=== PATIENT | male | born 1960 | race Caucasian/White ===

== ENCOUNTER 2019-04-07 11:39 | Inpatient (IN) ==
[2019-04-07 13:21] LABS: URINE SOURCE CATH
[2019-04-07 13:39] LABS: BILIRUBIN URINE NEGATIVE (NEGATIVE); BLOOD URINE TRACE (NEGATIVE); COLOR YELLOW; GLUCOSE URINE NEGATIVE (NEGATIVE); KETONE URINE NEGATIVE (NEGATIVE); LEUKOCYTES URINE LARGE (NEGATIVE); NITRITE URINE NEGATIVE (NEGATIVE); PROTEIN URINE TRACE mg/dL (NEGATIVE); SP GRAVITY URINE 1.014; TURBIDITY URINE CLEAR (CLEAR); UR EPITHELIAL CELLS <10 /HPF (<10); URINE BACTERIA 4+ /HPF; URINE RBC <10 /HPF (<10); URINE WBC TNTC /HPF (<10); UROBILINOGEN URINE NORMAL (NORMAL)
[2019-04-07] MEDS ORDERED: MORPHINE IV ONE ×2 (13:44→15:55)
[2019-04-07] MEDS ORDERED: ZOFRAN IV ONE (13:44)
[2019-04-07 13:53] LABS: BASO# 0.01 X1000 (0.0-0.2); EOS# 0.04 X1000 (0.0-0.7); EOS% 0.2 % (0.0-10.0); HEMATOCRIT 44.6 % (42.0-52.0); HEMOGLOBIN 15.2 g/dL (14.0-18.0); IMM GRAN# 0.11 X1000 (0.0-0.04); IMM GRAN% 0.5 % (0.0-0.5); LYMPH% 1.4 % (20.5-51.1); MCHC 34.1 g/dL (33-37); MCV 93.9 FL (81-99); MONO# 0.31 X1000 (0.11-0.59); MONO% 1.5 % (1.7-9.3); NEUT# 20.08 X1000 (1.4-6.5); NEUT% 96.4 % (42.2-75.2); PLT 177 X1000 (130-400); RBC 4.75 XMIL (4.7-6.1); RDW 13.4 % (11.5-14.5); WBC 20.85 X1000 (4.8-10.8)
[2019-04-07] MEDS ORDERED: LEVAQUIN 750 MG/D5W 750 MG/150 ML IVPB IV ONE (13:59)
[2019-04-07 14:10] LABS: AGAP 13; ALB/GLOB RATIO 1.3; ALBUMIN 4.2 g/dL (3.5-5.0); ALKALINE PHOSPHATASE 71 U/L (32-122); BUN 17 mg/dL (8-22); CALCIUM 10.1 mg/dL (8.8-10.2); CHLORIDE 96 mmol/L (98-107); COSMO 271; CREATININE 1.2 mg/dL (0.7-1.2); ESTIMATED GFR > 60; GLUCOSE 126 mg/dL (70-104); GOT 23 U/L (10-34); GPT 19 U/L (10-44); POTASSIUM 4.3 mmol/L (3.5-5.1); SODIUM 134 mmol/L (136-145); TCO2 25 mmol/L (25-35); TOTAL BILIRUBIN 1.02 mg/dL (0.20-1.00); TOTAL PROTEIN 7.5 g/dL (6.3-8.3)
[2019-04-07 14:12] LABS: BANDS 10 % (0-1); LYMPHS 8 % (21-51); MONO 2 % (1-9); SEGS 80 % (42-75)
[2019-04-07] MEDS ORDERED: ROCEPHIN 1 GM in NS 50 ML IV ONE (14:47)
--- NOTE | 2019-04-07 16:08 | Diag Imaging Result Doc PS360 ---
EXAM: CT ABD/PELVIS W/IV CONT ONLY 04/07/2019 HISTORY: abd pain TECHNIQUE: This exam was performed using automated exposure control, adjustment of mA or kV according to patient size, and/or use of iterative reconstruction technique. COMMENT: The current examination is compared with 10/24/2015. There are atelectatic changes in the lung bases posteriorly which were not present at the time of the previous study. There are bilateral pleural effusions which were not previously present. The stomach is markedly distended with gas and fluid. There is a hiatal hernia which contains some gas and fluid. The distal esophagus is slightly thickened in appearance. There is some free fluid in the subphrenic spaces. The gallbladder is not distended and there is no evidence of stones. The spleen and adrenal glands are not enlarged. There is a fair amount of stool in the colon and there are multiple fluid and gas-filled small bowel loops which are distended in the left abdomen. The kidneys are without evidence of hydronephrosis or mass. The hydronephrosis and dilatation of the urinary bladder which were present at the time the previous study are no longer present. There are no definite stones. The aorta is not distended. There are atherosclerotic calcifications. The mesenteric and renal arteries are patent. There is an accessory left renal artery. This: There is free fluid. The urinary bladder is much less distended than on the previous study. There is formed stool in the rectum. The anasarca which was present previously is no longer present. The appendix is surgically absent by history. There are bilateral fluid-filled inguinal hernias. There is rotoscoliosis of the lumbar spine with convexity to the right. IMPRESSION: 1. Bibasilar atelectasis and pleural effusions. 2. Small hiatal hernia with possible reflux. The possibility of esophagitis cannot be excluded. 3. Distended stomach and small bowel. The possibility of ileus or partial obstruction cannot be excluded. 4. Constipation. 5. Ascites. Electronically signed by Rodolfo Posada 04/07/2019 4:05 PM
--- NOTE | 2019-04-07 16:37 | PROVIDER DOCUMENTATION ---
This chart was entered by Dianne Barclay Scribe, acting as scribe for Jan Ibrahim CRNP. HPI-Male Problem - General Chief Complaint: Abdominal Pain Stated Complaint: ABD PAIN Time Seen by Provider: 04/07/19 11:50 Source: patient Allergies/Adverse Reactions: Patient Allergies Allergy/AdvReac Type Severity Reaction Status Date / Time No Known Allergies Allergy Verified 04/07/19 12:58 Home Medications: Home Medication List Medication Instructions Recorded Confirmed Last Taken Type Tamsulosin [Flomax] 0.4 mg PO DAILY 04/07/19 04/07/19 04/07/19 History - History of Present Illness-Male Nature of Presenting Problem: Patient is a 58 year old male who presents to the ED with suprapubic and ur ethral pain. States pain started yesterday and has worsened. Reports he self cath 5 times a day. Denies fever. Location of Complaint: reports: suprapubic Radiation: reports: none Quality of Pain: reports: aching Severity in ED: reports: mild Onset/Duration: reports: 24 hours ago Timing: reports: still present, getting worse Context/Activities at Onset: reports: light activity Associated Symptoms: reports: other (urethral pain) Associated Symptoms: reports: denies symptoms Similar Symptoms Previously?: Yes Recently seen or treated by another doctor?: No Review of Systems - Adult - REVIEW OF SYSTEMS - ADULT Constitutional: reports: no symptoms reported. denies: chills, fever, fatique Eyes: reports: no symptoms reported Ears, Nose, Mouth & Throat: reports: no symptoms reported Cardiovascular: reports: no symptoms reported Respiratory: reports: no symptoms reported Gastrointestinal: reports: see HPI, abdominal pain (suprapubic). denies: nausea, vomiting Genitourinary: reports: see HPI, other (urethral pain). denies: dysuria, hematuria Musculoskeletal: reports: no symptoms reported Integumentary: reports: no symptoms reported Neurological: reports: no symptoms reported Psychiatric: reports: no symptoms reported Endocrine: reports: no symptoms reported Hematologic/Lymphatic: reports: no symptoms reported Allergic/Immunologic: reports: no symptoms reported All Other Systems: Reviewed and Negative Past History - Adult - PAST MEDICAL HISTORY-ADULT Review of Records: reports: Old Records Reviewed, Social history reviewed & non-contributory. Major Childhood Illnesses: reports: denies history Cardiovascular: reports: HTN Respiratory: reports: denies history Gastrointestinal: reports: denies history Obstetrical/Gynecological: reports: denies history Genitourinary: reports: kidney disease Musculoskeletal: reports: denies history Neurological: reports: denies history Endocrine/Immune: reports: denies history Other Conditions: reports: denies history - PRIOR SURGERIES/PROCEDURES Surgical/Procedure History: reports: appendectomy, orthopedic (extremity) - IMMUNIZATION STATUS Childhood Immunizations: See Nurse Assessment Flu Vaccine: See Nurse Assessment - FAMILY HISTORY Family History: reviewed, not pertinent - SOCIAL HISTORY Smoking: cigarettes, greater than 1 pack/day Provider spent 3-5 mins advising pt. on dangers of tobacco.: Discussed manners to quit use, and f/u contacts for add'l counseling. Substance Use: alcohol Alcohol Use Frequency: occasionally Physical Exam-General - PHYSICAL EXAM-ADULT Initial Vital Signs Reviewed: Yes - CONSTITUTIONAL General Appearance: alert, no apparent distress. negative: lethargic - HEAD, EARS, NOSE, MOUTH & THROAT HENMT: normocephalic/atraumatic, moist mucous membranes. negative: angioedema - RESPIRATORY Respiratory: chest non-tender, lungs clear, normal breath sounds. negative: crackles, rales - CARDIOVASCULAR Cardiovascular: normal peripheral pulses, regular rate, rhythm. negative: tachycardia - GASTROINTESTINAL (ABDOMEN) Abdominal Exam: distended (firm), tenderness (generalized). negative: normal bowel sounds (absent), guarding, rebound - GENITOURINARY Male Genitalia: deferred - MUSCULOSKELETAL Extremity: non-tender, normal inspection. negative: deformity, erythema Peripheral Pulses: radial (R): 2+, radial (L): 2+, dorsalis-pedis (R): 2+, dorsalis-pedis (L): 2+ - SKIN Integumentary: normal color, normal turgor, warm/dry. negative: diaphoresis, jaundice, rash - NEUROLOGIC Neurologic: grossly normal. negative: aphasia, facial droop - PSYCHIATRIC Psych/Mental Status: normal mood/affect, oriented x 3. negative: disheveled Progress - PLAN OF CARE/RESULTS Progress/Plan/Lab Results: Vital Signs - 8 hr 04/07/19 11:41 04/07/19 14:10 Temperature 98.3 F 98.1 F Pulse Rate 97 H 96 H Respiratory Rate 20 18 Blood Pressure 151/83 112/74 O2 Sat by Pulse Oximetry 97 95 Laboratory Results - last 24 hr 04/07/19 04/07/19 04/07/19 12:25 13:30 13:30 WBC 20.85 H RBC 4.75 Hgb 15.2 Hct 44.6 MCV 93.9 MCH 32.0 H MCHC 34.1 RDW Std Deviation 13.4 Plt Count 177 MPV 9.0 Immature Gran % (Auto) 0.5 Neut % (Auto) 96.4 H Lymph % (Auto) 1.4 L [place] % (Auto) 1.5 L Eos % (Auto) 0.2 Baso % (Auto) 0.0 Immature Gran # (Auto) 0.11 H Neut # (Auto) 20.08 H Lymph # (Auto) 0.30 L [place] # (Auto) 0.31 Eos # (Auto) 0.04 Baso # (Auto) 0.01 Segmented Neutrophils 80 H Band Neutrophils 10 H Lymphocytes 8 L Monocytes 2 Sodium 134 L Potassium 4.3 Chloride 96 L Carbon Dioxide 25 Anion Gap 13 BUN 17 Creatinine 1.2 Estimated GFR/1.73 m2 > 60 BUN/Creatinine Ratio 14 Glucose 126 H Calculated Osmolality 271 Calcium 10.1 Total Bilirubin 1.02 H AST 23 ALT 19 Alkaline Phosphatase 71 Total Protein 7.5 Albumin 4.2 Globulin 3.3 Albumin/Globulin Ratio 1.3 Urine Source CATH Urine Color YELLOW Urine Turbidity CLEAR Urine pH 6.0 Ur Specific [place] 1.014 Urine Protein TRACE A Ur Glucose (Stick) NEGATIVE Ur Ketones (Stick) NEGATIVE Urine Blood TRACE A Urine Nitrite NEGATIVE Urine Bilirubin NEGATIVE Urobilinogen Dipstick NORMAL Urine Leukocytes LARGE A Urine WBC (Auto) TNTC A Urine RBC (Auto) <10 U Epithel Cells (Auto) <10 Urine Bacteria (Auto) 4+ Orders Category Date Time Status CT ABD/PELVIS W/IV CONT ONLY [CT] Stat Exams 04/07/19 13:19 Completed BLOOD CULTURE [BLDCUL] Stat Lab 04/07/19 16:29 Ordered CBC WITH DIFF [HEME] Stat Lab 04/07/19 13:30 Completed COMPREHENSIVE METABOLIC PANEL [CHEM] Stat Lab 04/07/19 13:30 Completed LACTATE, PLASMA [CHEM] Stat Lab 04/07/19 16:05 Ordered UA NIMS W/REFLEX CULT [URINALYSIS] Stat Lab 04/07/19 12:25 Completed URINE CULTURE [RM] Routine Lab 04/07/19 13:46 Received CefTRIAXONE [Rocephin] 1 gm Med 04/07/19 14:47 Discontinued 0.9% Sodium Chloride Inj [Ns] 50 ml IV NOW Levofloxacin 750 mg/D5w [Levaquin 750 mg/D5w] Med 04/07/19 13:59 Discontinued 750 mg in 150 ml IV NOW Morphine Med 04/07/19 13:44 Discontinued 4 mg IV NOW ONE Morphine Med 04/07/19 15:55 Discontinued 4 mg IV NOW ONE Ondansetron [Zofran] Med 04/07/19 13:44 Discontinued 4 mg IV NOW ONE Result Diagrams: 04/07/19 13:30 04/07/19 13:30 - REASSESSMENT Reassessment #1 Time Reassessed: 12:00 Status: worsening Reassessment Comment: waiting on labs Reassessment #2 Time Reassessed: 14:24 Status: worsening Reassessment Comment: waiting on CT - CT/MRI 1 CT Study: Abdomen, Pelvis Impression: Abnormal (COMMENT: The current examination is compared with 10/24/2015. There are atelectatic changes in the lung bases posteriorly which were not present at the time of the previous study. There are bilateral pleural effusions which were not previously present. The stomach is markedly distended with gas and fluid. There is a hiatal hernia which contains some gas and fluid. The distal esophagus is slightly thickened in appearance. There is some free fluid in the subphrenic spaces. The gallbladder is not distended and there is no evidence of stones. The spleen and adrenal glands are not enlarged. There is a fair amount of stool in the colon and there are multiple fluid and gas-filled small bowel loops which are distended in the left abdomen. The kidneys are without evidence of hydronephrosis or mass. The hydronephrosis and dilatation of the urinary bladder which were present at the time the previous study are no longer present. There are no definite stones. The aorta is not distended. There are atherosclerotic calcifications. The mesenteric and renal arteries are patent. There is an accessory left renal artery. This: There is free fluid. The urinary bladder is much less distended than on the previous study. There is formed stool in the rectum. The anasarca which was present previously is no longer present. The appendix is surgically absent by history. There are bilateral fluid-filled inguinal hernias. There is rotoscoliosis of the lumbar spine with convexity to the right. IMPRESSION: 1. Bibasilar atelectasis and pleural effusions. 2. Small hiatal hernia with possible reflux. The possibility of esophagitis cannot be excluded. 3. Distended stomach and small bowel. The possibility of ileus or partial obstruction cannot be excluded. 4. Constipation. 5. Ascites.), See EMR Report - CONSULTS/PCP/HOSPITALIST Notification #1 *Consult/PCP/Hospitalist*: ROBYN Villatoro Time Discussed: 16:34 Reason/Comments: Illeus, Luekocytosis, UTI Consult Disposition: Admit Departure - Departure Date of Disposition Decision: 04/07/19 Time of Disposition Decision: 16:35 DIAGNOSIS: Ileus UTI (urinary tract infection) Qualifiers: Urinary tract infection type: site unspecified Hematuria presence: with hematuria Qualified Code(s): N39.0 - Urinary tract infection, site not s pecified; R31.9 - Hematuria, unspecified Leukocytosis Qualifiers: Leukocytosis type: unspecified Qualified Code(s): D72.829 - Elevated white blood cell count, unspecified Disposition: ADMITTED INPATIENT 09 Certified Medical Emergency: Emergent Condition: Critical Additional Freetext Instructions: ED Follow Up Instructions: You have been treated by a care provider in the Emergency Department. These instructions are being provided to you so you can have an understanding of how to care for yourself upon discharge. Upon discharge from the Emergency Department, you are responsible for making arrangements for follow-up care by a physician of your choice. Take all prescribed medications as directed. Return to the Emergency Department immediately for any new or worsening symptoms. You may call the Physician Referral phone number at [phone] to obtain a list of Physicians who are taking new patients. Referrals and Follow-Ups: Shalom Rabago MD [Primary Care Provider] - - Critical Care Note This patient required my direct & personal management of CC.: No Attestation - Physician/ DEWEY Attestation Patient care was provided by Advanced Practice Provider:: Yes Advanced Practice Provider:: Jan Ibrahim Advanced Practice Provider documentation review:: The Mid-level provider documentation, treatment plan and medical decision making was reviewed by the physician who agrees with all treatment and medical decision making by the P. The physician spent face to face time with patient:: Yes (Dr Pena) Advanced Practice Provider documentation review:: Supervising physician onsite and consulted in the evaluation and care of this patient. The physician did have a face to face encounter with the patient. This chart was documented by the indicated scribe, (Dianne Barclay Scribe) and accurately reflects the services I performed and decisions made by me, Jan Ibrahim CRNP, as attested by the provider's signature.
[2019-04-07] MEDS ORDERED: DULCOLAX PR SCH (18:30)
[2019-04-07] MEDS: ZOFRAN IV PRN (18:46)
--- NOTE | 2019-04-07 19:47 | Diag Imaging Result Doc PS360 ---
EXAM: KUB ABDOMEN - 04/07/2019 HISTORY: sbo TECHNIQUE: Portable AP spine abdomen COMPARISON: 04/07/2019 CT abdomen/pelvis FINDINGS: The uppermost abdomen is not entirely included on radiograph. There is gaseous distention of proximal stomach similar to the prior CT. There is mild generalized gaseous bowel distention elsewhere. This is less conspicuous than were the dilated small bowel loops which were seen on the prior CT, but some of the small bowel distention was seen on the CT was primarily with fluid, which may be more difficult to visualize on the radiograph. IMPRESSION: Gaseous distention of proximal stomach. Mild generalized gaseous bowel distention elsewhere. See above. Electronically signed by Valerio Muhammad 04/07/2019 7:45 PM
[2019-04-07] MEDS ORDERED: HURRICAINE SPRAY MT ONE (20:15)
--- NOTE | 2019-04-07 20:47 | GENERAL SURGERY CONSULTATION ---
DATE: 04/07/2019 REQUESTING PHYSICIAN: Dr. Tejada. REASON FOR CONSULTATIOIN: Small bowel obstruction and peritonitis. HISTORY OF PRESENT ILLNESS: This is a 58-year-old male who began having severe diffuse abdominal pain yesterday morning. It is constant, has been increasing in intensity. It is worsened with movement. There have been no relieving factors. It is associated with nausea, but no vomiting. No fever. His last bowel movement was yesterday. PAST MEDICAL HISTORY: Urinary retention. He does perform self-catheterizations 5 times daily. HOME MEDICATIONS: Flomax. ALLERGIES: No known drug allergies. PAST SURGICAL HISTORY: Right rotator cuff repair, appendectomy, robot-assisted partial cystectomy and bladder diverticulectomy, exploratory laparotomy. SOCIAL HISTORY: Negative for tobacco. He drinks alcohol occasionally. No illicit drug use. FAMILY HISTORY: Reviewed and noncontributory. REVIEW OF SYSTEMS: Ten systems reviewed and negative except as noted above. PHYSICAL EXAMINATION: Vital Signs: Temperature 99.1 degrees, pulse 96, respirations 24, blood pressure 141/84, O2 saturation 95%. General: This is a well-nourished male who appears ill, but in no acute distress. He looks his stated age. HEENT: Normocephalic, atraumatic. Extraocular muscles intact. Pupils equal, round, reactive to light. Sclerae anicteric. Mucous membranes are dry. Neck: Supple. No thyromegaly. CV: Regular rate and rhythm. Respiratory: Bilateral breath sounds. No increased work of breathing. GI: Firm, distended, diffusely tender with some rebound and guarding. No organomegaly or masses appreciated. No hernias appreciated. Extremities: No clubbing, cyanosis, or edema. Skin: Warm and dry. No rash. Musculoskeletal: Moves all extremities equally and well. LABORATORY: White blood cell count 20,000, hemoglobin 15, hematocrit 44, platelet count 177,000. Electrolytes reviewed and notable for total bilirubin of 1.0, lipase 11. Serum lactate 1.6. Urinalysis shows many white blood cells and some trace blood with 4+ bacteria, but the nitrites are negative. IMAGING: Abdominal and pelvis CT scan showed basilar atelectasis and pleural effusions. A small hiatal hernia with possible reflux and possible esophagitis and a very distended stomach and proximal small bowel concerning for ileus or small-bowel obstruction. He also has some constipation and ascites. Followup abdominal x-ray again showed dilated proximal stomach and small bowel. ASSESSMENT AND PLAN: A 58-year-old male with acute abdominal pain, peritoneal irritation on exam and imaging concerning for small bowel obstruction. The nurses as well as myself have attempted an nasogastric tube placement several times without success. Given his exam, I believe we should proceed to the operating room urgently for exploration. I have discussed the risks and benefits with him including bleeding, infection, injury to intra-abdominal organs, the possible need for bowel resection and a gastrostomy tube, incisional hernia, and other imponderables. He understands and agrees to proceed. cc: Cedrick Johnson MD
[2019-04-07] MEDS ORDERED: KEFZOL 1 GM/D5W 1 GM/50 ML IVPB ONE (21:05)
[2019-04-07] MEDS ORDERED: LR 0 ML ONE (21:05)
[2019-04-07] MEDS ORDERED: SENSORCAINE 0.25%/EPI 1:200,000 ONE (21:05)
[2019-04-07] MEDS ORDERED: DIPRIVAN 1% ONE (21:06)
[2019-04-07] MEDS ORDERED: FENTANYL ONE (21:07)
--- NOTE | 2019-04-07 21:29 | HISTORY AND PHYSICAL ---
CHIEF COMPLAINT: Abdominal pain, nausea, and vomiting. HISTORY OF PRESENT ILLNESS: This is a 58-year-old gentleman with a history of neurogenic bladder who performs CIC 6 times a day, hypertension who presented to the emergency room complaining of low abdominal pain and nausea that has been waxing and waning probably over the last week. He states that last night he had persistent abdominal pain with this spasms, prompting his presentation to the emergency room. CT scan revealed a small hiatal hernia with possibility of esophagitis with a possibility of ileus or a small bowel obstruction. PAST MEDICAL HISTORY: Hypertension and bladder diverticulum status post resection. Clean intermittent catheterization 5 to 6 times a day. PAST SURGICAL HISTORY: Appendectomy, right shoulder surgery and robot-assisted partial cystectomy and bladder diverticulectomy. ALLERGIES: No known drug allergies. FAMILY HISTORY: His parents had Alzheimer's. His mother had asthma. REVIEW OF SYSTEMS: Discussed with patient with pertinent positives stated in the HPI. He denied any syncope or dizziness, any chest pain or palpitations, any night sweats, recent weight loss or weight gain, any black or bloody vomitus or stools, any hematuria, dysuria, frequency, urgency. PHYSICAL EXAMINATION: GENERAL: This is a 58-year-old gentleman who is sitting up in the bed in the emergency room in mild distress. VITAL SIGNS: Blood pressure is 112/70 with heart rate of 96, respirations are 18, temperature is 98.1 degrees with room air saturations 95%. EYES: Pupils equal, round, react to light. EOMs are intact. Sclerae anicteric. HEENT: Head is normocephalic, atraumatic. Mucous membranes are moist. NECK: Supple. Trachea midline. CARDIOVASCULAR: Regular rate and rhythm. S1 and S2 appreciated. EXTREMITIES: He has no lower extremity edema. Peripheral pulses are palpable x4 extremities. Calves are nontender to palpation. PULMONARY: Breath sounds are clear. No increased work of breathing noted. GASTROINTESTINAL: Abdomen is firm, slightly distended with absent bowel sounds. GENITOURINARY: He has no CVA or suprapubic tenderness. NEUROLOGIC: He is alert and oriented x3. SKIN: Warm and dry. LABS: WBC is 20.8 with hemoglobin 15.2, hematocrit 44.6, platelets 177,000. Sodium 134, potassium 4.3, BUN 17, creatinine 1.2 with a glucose of 126. Urinalysis is essentially negative. He does have vcr-cmmalchm-ef-count white blood cells with large leukocytes, negative nitrites with 4+ bacteria. IMAGING: CT of the abdomen and pelvis revealed distended stomach and small bowel. Possibility of ileus or partial obstruction cannot be excluded. Constipation, ascites, small hiatal hernia with possible reflux and bibasilar atelectasis. ASSESSMENT AND PLAN: 1. Ileus versus small-bowel obstruction. NG tube will be placed. He will be n.p.o. We will start Dulcolax suppositories every 6 hours. We will recheck a KUB in the morning. 2. Possible urinary tract infection in a patient who performs CIC 5 to 6 times a day. Urine culture is pending. 3. Bibasilar atelectasis. Start incentive spirometer q.4 hours. 4. History of hypertension. We will monitor vital signs and treat as appropriate. 5. Abdominal pain. We will use morphine IV. 6. Nausea and vomiting. Zofran. 7. For deep vein thrombosis prophylaxis will use sequential compression devices. For gastrointestinal prophylaxis Protonix. Plan was discussed with Dr. Tejada. Further treatments will depend on hospital course. Dictated by ROBYN Gtz for Darrick Tejada MD cc: ROBYN Gtz MD
[2019-04-07] MEDS: KEFZOL 1 GM/D5W 1 GM/50 ML IVPB IV ONE (21:44)
[2019-04-07] MEDS ORDERED: OFIRMEV 1000 MG/ISOTONIC SOLN 1,000 MG/100 ML BOTTLE ONE (21:52)
[2019-04-07] MEDS ORDERED: BRIDION ONE (21:55)
[2019-04-07] MEDS ORDERED: ALBUMIN 25% ONE (21:55)
[2019-04-07] MEDS ORDERED: DECADRON ONE (21:59)
[2019-04-07] MEDS ORDERED: ZOFRAN ONE ×2 (21:59→22:15)
[2019-04-07] MEDS ORDERED: TORADOL ONE (21:59)
--- NOTE | 2019-04-07 22:41 | HISTORY AND PHYSICAL ---
ADDENDUM: Mr. Bush came to the emergency room today because of abdominal pain which has been going on for the past 2 days. He denies any vomiting, but he has been very nauseated, and he has not passed any stool. Mr. Bush is also known to have chronic distended bladder associated with autonomic cystopathy, who has to be doing in-and-out catheterization. Upon presenting to the emergency department, his blood pressure was 151/81, pulse of 97, respiration was 20, temperature 98.2 degrees. On general exam, Mr. Bush is a 58-year-old gentleman. He looks in some painful distress. Mucosa is pink and moist. Anicteric. Acyanotic. Neck is supple. Chest is clear. Abdomen is soft. It is generally tender with some guarding and rebound. There is an old infraumbilical surgical scar. Extremities: No pedal edema. His laboratory data is significant for WBC of 20.85. There is 10% of bands. There is 80% of neutrophils. His chemistry is fairly unremarkable. His lipase is 11. The CT scan of the abdomen and pelvis shows bibasilar atelectasis and pleural effusions, small hiatal hernia and possible reflux. There is distended stomach and small bowel. Possibility of ileus or partial small bowel cannot be excluded. There is constipation and ascites. ASSESSMENT AND PLAN: 1. Acute abdominal pain with peritoneal reaction concerning for acute peritonitis. CT scan shows a surgically removed appendix and possibility of ileus versus small bowel; however, we are concerned about a peritoneal reaction. We want Surgery to rule out any acute surgical abdomen. The patient has been started on broad-spectrum antibiotics. Blood cultures will be done. 2. Ileus versus partial small-bowel obstruction. The nurses have attempted to put in a nasogastric tube. I am told that they have been unsuccessful. The patient is currently not vomiting, so I would withhold that. 3. Constipation. We will address this with bowel regimen. 4. Ascites with pleural effusions. Unsure why the patient is retaining fluid. For now his albumin seems to be fine. He does not look fluid-overloaded. I am wondering if it is all related to the intra-abdominal pathology. 5. Severely distended bladder due to longstanding autonomic cystopathy. The patient normally does in-and-out catheterization at home. We are going to put in a Hayes catheter to help empty the bladder. 6. Leukocytosis with bandemia, concerning for some inflammation/infection. I think it is probably related to an intra-abdominal pathology. The patient has been started on antimicrobial coverage and Surgery has been consulted. Please refer to the details of the history and physical which has been dictated by the nurse practitioner. cc: Darrick Tejada MD
[2019-04-07] MEDS ORDERED: METHYLENE BLUE 0.5% ONE (23:07)
[2019-04-07] MEDS ORDERED: ZEMURON ONE (23:14)
[2019-04-08] MEDS ORDERED: MORPHINE ONE ×2 (00:29→00:49)
[2019-04-08] MEDS ORDERED: NS 1,000 ML ONE (00:59)
[2019-04-08] MEDS: ZOSYN 3.375 GM in NS 50 ML IV SCH ×4 (01:43→21:29)
[2019-04-08] MEDS: MORPHINE IV PRN ×4 (04:19→19:30)
[2019-04-08] MEDS: OFIRMEV 1000 MG/ISOTONIC SOLN 1,000 MG/100 ML BOTTLE IV SCH ×4 (04:21→21:33)
[2019-04-08] MEDS: DULCOLAX PR SCH ×4 (05:46→21:36)
--- NOTE | 2019-04-08 05:49 | OPERATIVE NOTE ---
PROCEDURE DATE: 04/07/2019 PREOPERATIVE DIAGNOSES: 1. Acute abdomen. 2. Small-bowel obstruction. POSTOPERATIVE DIAGNOSES: 1. Acute abdomen. 2. Small-bowel obstruction. 3. Bladder perforation. SURGEON: Cedrick Johnson MD PROCEDURES: 1. Exploratory laparotomy with lysis of adhesions. 2. Repair of bladder perforation. SURGEON: Cedrick Johnson MD. ANESTHESIA: General. ESTIMATED BLOOD LOSS: 50 mL. COMPLICATIONS: None apparent. SPECIMENS: Omental adhesions. FINDINGS: The patient had an adhesion of the omentum down to the right lower quadrant that was likely causing partial bowel obstruction. There was a large amount of seropurulent ascites throughout the abdomen. There was an apparent bladder perforation. There was an intraperitoneal bladder perforation. TECHNIQUE: The patient was brought to the operating room and placed supine on the table. General anesthesia was induced. A Hayes catheter was placed. He was prepped and draped in the usual sterile fashion. The sr. payroll manager was also able to pass an NG tube into the stomach. An incision was made from the symphysis pubis to the epigastrium with a knife and carried down through the subcutaneous tissue, and then fascia with cautery. The peritoneum was entered carefully with cautery. There was a copious amount of seropurulent ascites throughout all of the abdomen. There was dilated proximal small bowel. I found an adhesion of the omentum down to the right lower quadrant pelvic sidewall, and small bowel was trapped underneath that. After I incised that adhesion, the bowel was free and there was no further obstruction. I did run the small bowel from the terminal ileum all the way back to the ligament of Treitz. I then checked to see if there was appendicitis. I searched diligently for the appendix, and could not find one. I had mobilized the cecum and right colon from lateral to medial off the retroperitoneum being careful to protect the duodenum and could not find any appendix. I followed the ascending colon around the hepatic flexure to the transverse colon. The transverse colon appeared normal. There was a moderate amount of stool throughout all of the colon. The descending colon and splenic flexure appeared normal. The sigmoid colon was densely adherent to the anterior abdominal wall. The rectum was densely adherent to the anterior abdominal wall and bladder. I took down these adhesions carefully with scissors and cautery. I then turned my attention to the stomach and duodenum. I searched diligently for an ulcer. The lesser curve and greater curve were examined. There were no ulcers. I entered the hepatogastric ligament into the lesser sac superiorly, and found no evidence of ulcer there. I entered the lesser sac below the stomach, and lifted up the stomach anteriorly. There was no evidence of ulcer posteriorly. The pyloric area and duodenal bulb were examined. There was no ulcer there. The gallbladder appeared normal. At this point, it was unclear what the etiology of the seropurulent ascites was. I then had the staff instill 200 mL of methylene blue and saline into the bladder. There was an obvious bladder perforation. I repaired this perforation with a running 2-0 chromic, and over sewed this with interrupted 2-0 Vicryl. They then re instilled the bladder with 250 mL of saline and methylene blue, and there was no further leakage. I placed the bowel back in anatomic position, and irrigated all quadrants in the pelvis with warm saline and suctioned this out. There were no signs of any other pathologic lesion I placed a 10 EMMY drain near the bladder repair in the pelvis, and brought it out through a left lower quadrant stab incision. It was anchored to the skin with 3-0 silk. The NG tube was felt to be in the stomach along the greater curvature. I then closed the fascia with a running #1 looped Maxon in 2 directions and skin clips. He tolerated this well without apparent complication, was awakened in stable condition, and transferred to the recovery room. cc: Cedrick Johnson MD
[2019-04-08 07:26] LABS: EOS# 0.01 X1000 (0.0-0.7); EOS% 0.1 % (0.0-10.0); HEMATOCRIT 39.2 % (42.0-52.0); LYMPH# 0.21 X1000 (1.2-3.4); LYMPH% 2.1 % (20.5-51.1); MCH 31.9 PG (27-31); MCHC 33.2 g/dL (33-37); MCV 96.1 FL (81-99); MONO# 0.27 X1000 (0.11-0.59); MONO% 2.7 % (1.7-9.3); MPV 9.6 FL (7.4-10.4); NEUT# 9.42 X1000 (1.4-6.5); NEUT% 95.1 % (42.2-75.2); PLT 131 X1000 (130-400); RBC 4.08 XMIL (4.7-6.1); RDW 13.4 % (11.5-14.5); WBC 9.91 X1000 (4.8-10.8)
[2019-04-08 07:59] LABS: AGAP 9; BUN 12 mg/dL (8-22); CALCIUM 8.2 mg/dL (8.8-10.2); CHLORIDE 101 mmol/L (98-107); COSMO 274; CREATININE 1.1 mg/dL (0.7-1.2); ESTIMATED GFR > 60; GLUCOSE 132 mg/dL (70-104); MAGNESIUM 1.7 mg/dL (1.5-2.7); POTASSIUM 4.2 mmol/L (3.5-5.1); SODIUM 136 mmol/L (136-145); TCO2 26 mmol/L (25-35)
[2019-04-08] MEDS: FLOMAX PO SCH (09:15)
[2019-04-08] MEDS: PERIDEX MT SCH ×2 (09:15→21:29)
[2019-04-08] MEDS: LOVENOX SUBQ SCH (09:16)
[2019-04-08] MEDS: ZOFRAN IV PRN ×3 (11:22→19:30)
[2019-04-08] MEDS ORDERED: LEVAQUIN 500 MG/D5W 500 MG/100 ML IVPB IV SCH (14:00)
--- NOTE | 2019-04-08 15:28 | PROGRESS NOTE ---
DATE: 04/08/2019 SUBJECTIVE: This morning Mr. Bush refers to be doing well. He underwent surgery yesterday. He said his abdominal pain has significantly improved. OBJECTIVE: Vital signs: Blood pressure is 117/62, pulse of 75, respiration is 16, temperature is 98.3 degrees. The patient is saturating 95% on room air. General: On general exam, Mr. Bush is a 58-year-old gentleman. He is in bed, no distress. HEENT: Mucosa is pink and moist. Anicteric. Acyanotic. Neck: Supple. Chest: Good air entry bilateral. There were no crepitations, no rhonchi. Cardiovascular: Regular rate and rhythm. GI/Abdomen: Soft. There is a new surgical incision in the mid abdomen which is covered with sterile dressing. There is also a EMMY drain in place. Hayes catheter is also in place. ASSEMBLY RIVETER: Patient is awake, alert, and oriented. LABORATORY DATA: WBC is down to 9.91, hemoglobin is 13.0, platelet count of 131. Chemistry is also reviewed, unremarkable. The patient's urine culture is showing gram-negative amber. The abdomen fluid Gram stain shows no bacteria. We are still pending the cultures. The surgery report seems to suggest that there was adhesion of the omentum down to the right lower quadrant that was likely causing the partial obstruction. There was also a large amount of seropurulent ascites throughout the abdomen, and there was apparent bladder perforation. ASSESSMENT: 1. Acute abdomen secondary to suppurative peritonitis. Patient is status post exploratory laparotomy with lavage of the peritoneal space. 2. Perforated bladder, status post repair. 3. Partial small bowel obstruction. Patient underwent lysis of adhesions. 4. Severely distended bladder due to neurogenic bladder. 5. The patient normally does in-and-out catheterization self-catheterization. He currently has a Hayes in place. 6. Sepsis on presentation secondary to peritonitis. White cell count has normalized. PLAN: So, in general, I think Mr. Bush is doing well. He still has the NG tube in place, but the abdominal pain has significantly improved after the surgery. We are still pending the cultures. The patient is n.p.o. for now. We will follow up with further recommendations from surgery. We are going to continue with the hydration, IV fluids and the antibiotics for now. cc: Darrick Tejada MD
--- NOTE | 2019-04-08 16:45 | GENERAL SURGERY PROGRESS NOTE ---
DATE: 04/08/2019 SUBJECTIVE: The patient feels a lot better. He denies nausea or vomiting. OBJECTIVE: Vitals: He is afebrile. Vital signs are stable. NG tube output 475 mL overnight. EMMY drain 230 mL; it is serosanguineous. General: He is awake, alert, oriented x3. No acute distress. GI: Soft, mildly distended, appropriately tender. Incisional dressing is clean and dry. Hypoactive bowel sounds. LABORATORY: White blood cell count 9.9, hemoglobin 13, hematocrit 39, and platelet count 131,000. Electrolytes reviewed and unremarkable. ASSESSMENT AND PLAN: A 58-year-old male, postoperative day 1 exploratory laparotomy with lysis of adhesions and repair of bladder perforation. We will continue his NG tube for now given his peritonitis yesterday and likelihood of ileus. Dr. Quijano will assess over the weekend whether he can back off or remove the NG tube. He needs to keep his Hayes catheter and EMMY drain for the time being given the bladder repair. We will consult Dr. Monroy for further advice regarding that. He also needs to continue IV Zosyn because of the peritonitis, and we will follow up on his culture results and clinical course. cc: Cedrick Johnson MD
[2019-04-09] MEDS: DILAUDID IV PRN ×5 (00:27→18:54)
[2019-04-09] MEDS: ZOFRAN IV PRN ×6 (00:28→22:45)
[2019-04-09] MEDS: NS 1,000 ML IV SCH ×3 (00:31→19:55)
[2019-04-09] MEDS: DULCOLAX PR SCH ×6 (01:09→23:40)
[2019-04-09] MEDS: ZOSYN 3.375 GM in NS 50 ML IV SCH ×4 (01:39→19:54)
[2019-04-09 07:15] LABS: HEMATOCRIT 40.2 % (42.0-52.0); HEMOGLOBIN 13.2 g/dL (14.0-18.0); MCH 32.1 PG (27-31); MCHC 32.8 g/dL (33-37); MCV 97.8 FL (81-99); MPV 9.3 FL (7.4-10.4); RBC 4.11 XMIL (4.7-6.1); RDW 13.5 % (11.5-14.5); WBC 8.04 X1000 (4.8-10.8)
[2019-04-09 07:35] LABS: AGAP 10; ALBUMIN 2.5 g/dL (3.5-5.0); BUN 14 mg/dL (8-22); CALCIUM 8.2 mg/dL (8.8-10.2); CHLORIDE 106 mmol/L (98-107); COSMO 285; ESTIMATED GFR > 60; GLUCOSE 98 mg/dL (70-104); PHOSPHORUS 2.6 mg/dL (2.7-4.5); POTASSIUM 3.8 mmol/L (3.5-5.1); SODIUM 143 mmol/L (136-145); TCO2 27 mmol/L (25-35)
[2019-04-09] MEDS: MORPHINE IV PRN ×4 (09:40→22:45)
[2019-04-09] MEDS: PERIDEX MT SCH ×3 (09:41→23:40)
[2019-04-09] MEDS: LOVENOX SUBQ SCH (09:41)
--- NOTE | 2019-04-09 11:02 | PROGRESS NOTE ---
DATE: 04/09/2019 SUBJECTIVE: This morning Mr. Bush refers to be doing well. He did not have any major complaints, except for some abdominal discomfort. OBJECTIVE: Vital signs: Blood pressure was 147/74, pulse of 72, respirations 16, temperature 98.3 degrees. General exam: Mr. Bush is a 58-year-old gentleman. He was in bed. No distress. HEENT: Mucosa was pink and moist. Anicteric. Acyanotic. The NG tube was still in place, and he seems to be draining some coffee-ground emesis. Chest: Clear to auscultation. Cardiovascular: Regular rate and rhythm. No murmurs, no rubs, no gallops. GI/Abdomen: Soft. The surgical incision was covered, but it looks pretty much clean. The EMMY drain is still in place and Hayes catheter is also in place. DIRECTOR STAFFING: Patient is awake, alert and oriented. LABORATORY DATA: Has been reviewed. The patient's CBC is within normal parameters. Chemistry is also reviewed; unremarkable, except for a mild low phosphorus. So far, urine culture is growing gram-negative amber which is pending ID and sensitivity. ASSESSMENT: 1. Acute abdomen secondary to suppurative peritonitis. Patient is status post exploratory laparotomy with lavage of the peritoneal space. Today is day 1 postoperative. The patient seems to be doing well. He still has the nasogastric tube in place, so we will await for Surgery to evaluate him before we discuss that. Of note, Mr. Bush has not had any bowel movement or passing any gas. 2. Perforated urinary bladder. The patient is status post repair. Urology has been consulted. Hayes catheter is in place. The patient is making adequate urine. Culture is showing gram- negative amber. 3. Partial small-bowel obstruction. The patient is status post lysis of adhesions. 4. Severe dilated bladder due to neurogenic bladder. 5. Sepsis on presentation secondary to peritonitis, improved. White blood count has normalized. 6. Gram-negative amber urinary tract infection. We will continue with the current antimicrobial coverage. 7. Coffee-ground emesis in the nasogastric tube. We will start Mr. Bush on proton pump inhibitor. cc: Darrick Tejada MD
--- NOTE | 2019-04-09 13:57 | CONSULTATION ---
DATE OF CONSULTATION: 04/09/2019 ATTENDING PHYSICIAN: Dana. HISTORY OF PRESENT ILLNESS: This 58-year-old male with history of neurogenic bladder on clean intermittent catheterization 4 to 5 times a day was admitted with an acute abdomen. He underwent exploratory laparotomy that revealed a perforation of the bladder that was repaired. The patient states that prior to admission, he catheterizes with a soft catheter that is discarded after each catheterization. He states that in the days before he did not notice any difference in the urine. He had no pneumaturia. He states his abdomen became swollen and he had pain and he came to the emergency room. His CT scan revealed ascites and probable small bowel obstruction. The patient was seen in 2016 with a very distended bladder and a very large diverticulum was noted. The patient had several voiding trials after Hayes decompression for more than 2 weeks and he was unable to void. He underwent laparoscopic robot-assisted bladder diverticulectomy. The diverticulum was significantly adhered to the rectum and there was a question of a rectal injury at the time of surgery. The diverticulum was completely excised and the bladder repaired. General surgery was asked to come in and evaluate the rectum which was done thoroughly and no injury was visualized. The patient had an uneventful recovery and again underwent several voiding trials without success. He has been on clean intermittent catheterization for over 3 years. PAST MEDICAL HISTORY: Hypertension, occasional pains. CURRENT MEDICATIONS: Documented on the chart. PAST SURGICAL HISTORY: As noted in the HPI. Appendectomy, shoulder surgery. SOCIAL HISTORY: Previous tobacco use. No recent tobacco use. Occasional alcohol use. ALLERGIES: No known drug allergies. REVIEW OF SYSTEMS: Usually in good health. He states he self-catheterizes without difficulty. He denies any recent chest pains or pulmonary problems. He denies bowel problems before this acute event. PHYSICAL EXAMINATION: General: A normally developed, well-nourished, age apparent white male, oriented in all ways and cooperative. He has an NG tube in place. HEENT: Normal for age. Lungs: Clear. Cardiovascular: Regular rate and rhythm. Abdomen: Dressing in place. Incision tenderness. Some bowel sounds. Genitourinary: Circumcised male with Hayes catheter in place draining clear urine. Both testes are down and palpably normal. There are no inguinal hernias. Rectal: Exam performed in the clinic on 03/18/2019 revealed a smooth and symmetric prostate. Extremities: No clubbing, cyanosis, or edema. Neuro: No focal deficits. LABORATORY EVALUATION: He has a white count of 8.04, hemoglobin of 13.2, hematocrit of 40.2 and platelets are 153,000. Serum electrolytes are normal. BUN 14, creatinine 1.0. His PSA on 18 March was 3.34, which was a significant increase from the year before. His 4Kscore has an elevated risk for prostate cancer. The patient is in the process of being scheduled for a prostate ultrasound and biopsy. IMPRESSION: 1. Status post exploratory laparoscopy and repair of bladder perforation. 2. Indwelling Hayes catheter. 3. Neurogenic bladder. 4. Elevated PSA. RECOMMENDATIONS: 1. Keep Hayse catheter drainage for at least 10 days. 2. Prior to Hayes removal, a cystogram to ensure complete healing. After the Hayes is removed he should resume clean intermittent catheterization with his soft catheters. 3. Consider rectum/colon evaluation since self-catheterization with soft catheters will not perforate a normal bladder wall. Will follow. Thank you for this consultation. cc: William Monroy MD
--- NOTE | 2019-04-09 14:28 | GENERAL SURGERY PROGRESS NOTE ---
DATE: 04/09/2019 SUBJECTIVE: Doing okay. A little more distention and discomfort this morning. OBJECTIVE: Bilious output from his NG tube. Abdomen is soft. Hayes is clear. EMMY drain is serosanguineous. No fevers. No tachycardia. Blood pressure 147/74. I reviewed his labs and his cultures. ASSESSMENT AND PLAN: This is a gentleman with perforation related to a bladder perforation from self-catheterizations. We will continue his Hayes and his NG tube today. I have encouraged to be out of bed ambulating. When he has return of bowel function, we will discontinue his nasogastric tube, but we will continue his Hayes given his neuropathic bladder and the need for self catheterization with a recent bladder perforation. cc: Kika Quijano MD
[2019-04-09] MEDS: FLOMAX PO SCH (15:34)
[2019-04-10] MEDS: DILAUDID IV PRN ×4 (00:03→16:40)
[2019-04-10] MEDS: ZOSYN 3.375 GM in NS 50 ML IV SCH ×4 (02:42→19:44)
[2019-04-10] MEDS: NS 1,000 ML IV SCH ×3 (02:42→14:22)
[2019-04-10] MEDS: ZOFRAN IV PRN ×5 (04:05→23:56)
[2019-04-10] MEDS: MORPHINE IV PRN ×5 (04:05→23:56)
[2019-04-10] MEDS: DULCOLAX PR SCH ×3 (05:51→14:21)
[2019-04-10] MEDS: LOVENOX SUBQ SCH (09:42)
[2019-04-10] MEDS: FLOMAX PO SCH (09:43)
[2019-04-10] MEDS: PERIDEX MT SCH ×2 (09:44→19:43)
--- NOTE | 2019-04-10 15:00 | GENERAL SURGERY PROGRESS NOTE ---
DATE: 04/10/2019 SUBJECTIVE: No flatus yet. Urine is clear. NG tube output remains high volume and bilious. On exam, he is alert. No tachycardia. Abdomen is soft. Dressing is clean. ASSESSMENT AND PLAN: This is a 58-year-old gentleman with peritonitis presumably related to a bladder perforation. He still has a bit of an ileus. We will keep his NG tube decompression, continue Hayes catheter given bladder repair, and observation going forward. cc: Kika Quijano MD
--- NOTE | 2019-04-10 15:31 | PROGRESS NOTE ---
DATE: 04/10/2019 SUBJECTIVE: This morning Mr. Bush refers to be doing well. Still has some mild abdominal discomfort especially after coughing. He said he has not had any bowel movement. OBJECTIVE: Vital signs: Blood pressure is 128/71, pulse of 72, respirations 18, temperature is 98.9 degrees. General: Mr. Bush is a 58-year-old gentleman. He is in bed, no distress. HEENT: Mucosa is pink and moist. Anicteric. Acyanotic. Neck: Supple. Chest: Good air entry bilaterally. There were no crepitations. No rhonchi. GI: Abdomen is soft. There is an NG tube in place. The surgical incision is covered. It looks pretty clean. The EMMY drain is still in place. Hayes catheter is in place. CORPORATE STAFF ACCOUNTANT: Patient is awake, alert, and oriented. LABORATORY: His no lab work today. ASSESSMENT: 1. Acute abdomen secondary to suppurative peritonitis. Patient is status post exploratory laparotomy. Today is day 2 postop. 2. Perforated urinary bladder, status post repair. Urology has evaluated the patient. 3. Partial small bowel obstruction. Patient is status post lysis of adhesions. 4. Neurogenic bladder. The patient normally does in-and-out self catheterization. 5. Sepsis on presentation secondary to peritonitis. 6. Klebsiella oxytoca urinary tract infection noted. Patient is on antimicrobial coverage. 7. Coffee-grounds emesis in NG tube. We will continue with PPI. PLAN: In general, I think Mr. Bush is doing well. He still has not had any bowel movement. Surgery prefers to continue keeping the NG tube and wait for bowel function. We are going to continue with the current antimicrobial hydration. If by tomorrow we still cannot use the enteral route, I think we will start some form of peripheral nutrition. cc: Darrick Tejada MD
[2019-04-11] MEDS: ZOSYN 3.375 GM in NS 50 ML IV SCH ×4 (01:02→20:45)
[2019-04-11] MEDS: DILAUDID IV PRN ×4 (01:02→20:44)
[2019-04-11] MEDS: NS 1,000 ML IV SCH ×2 (03:33→06:47)
[2019-04-11] MEDS: DULCOLAX PR SCH ×4 (03:33→19:49)
[2019-04-11] MEDS: PERIDEX MT SCH ×3 (03:34→20:44)
[2019-04-11] MEDS ORDERED: ZOSYN ONE (05:04)
[2019-04-11] MEDS: MORPHINE IV PRN ×3 (06:53→17:10)
[2019-04-11] MEDS: ZOFRAN IV PRN ×2 (06:53→17:10)
[2019-04-11 07:19] LABS: AGAP 11; ALBUMIN 2.6 g/dL (3.5-5.0); BUN 16 mg/dL (8-22); CALCIUM 8.6 mg/dL (8.8-10.2); CHLORIDE 111 mmol/L (98-107); COSMO 291; CREATININE 0.9 mg/dL (0.7-1.2); ESTIMATED GFR > 60; GLUCOSE 81 mg/dL (70-104); MAGNESIUM 2.1 mg/dL (1.5-2.7); POTASSIUM 3.3 mmol/L (3.5-5.1); SODIUM 146 mmol/L (136-145); TCO2 24 mmol/L (25-35)
[2019-04-11] MEDS ORDERED: D5 1/2 NS + KCL 20 MEQ 1,000 ML IV SCH (08:15)
[2019-04-11] MEDS: PROTONIX IV SCH ×2 (09:17→20:44)
[2019-04-11] MEDS: FLOMAX PO SCH (09:18)
[2019-04-11] MEDS: LOVENOX SUBQ SCH (09:18)
--- NOTE | 2019-04-11 13:17 | Diag Imaging Result Doc PS360 ---
EXAM: BARIUM ENEMA INDICATION: assess for rectal leak TECHNIQUE: Diluted water-soluble Omnipaque contrast was administered per rectum under fluoroscopy. Spot images of the colon were obtained. COMPARISON: None. FINDINGS: There is no abnormal contrast extravasation from the colon or rectum to indicate perforation. There is a small amount of patchy stool in the descending and sigmoid colon. No other discrete filling defect or stricture can be identified throughout the colon. The colon appears normal in caliber. The transverse colon is redundant and extends into the pelvis. No small bowel distention is identified. There is an incidental EMMY drain projecting of the pelvis and there are midline skin david. IMPRESSION: No evidence of rectal or colonic perforation. Electronically signed by Judd Joyner 04/11/2019 1:15 PM
--- NOTE | 2019-04-11 15:01 | PROGRESS NOTE ---
DATE: 04/11/2019 SUBJECTIVE: This morning, Mr. Bush refers to be feeling fairly okay. Has not had any bowel movement. He is not passing any gas. NG tube is still in place. There is some coffee-grounds emesis. OBJECTIVE: Vital Signs: Blood pressure is 156/74, pulse of 63, respirations 20, temperature 98 degrees. General: Mr. Bush is a 58-year-old gentleman. He was in bed. Did not seem to be in any distress. HEENT: Mucosa is pink and moist. Anicteric. Acyanotic. Neck: Supple. Chest: Good air entry bilaterally. There were no crepitations. No rhonchi. Cardiovascular: Regular rate and rhythm. No murmurs, no rubs, no gallops. GI: Abdomen was soft. NG tube was in place. There is a dressing over the surgical incision site. EMMY drain was still in place. Hayes catheter was in place. MIXOLOGIST: The patient is awake, alert, and oriented. LABORATORY DATA: Today, sodium is 146, potassium is 3.3, chloride is 111, bicarb is 24. Phosphorus and magnesium are all repleted. So far, the culture from the abdomen is negative. The urine shows Klebsiella oxytoca. The patient has been evaluated by Dr. Monroy. ASSESSMENT: 1. Acute abdomen on presentation secondary to suppurative peritonitis. The patient is status post exploratory laparotomy. Today is day 3 postoperative. Per the surgery report, there was a lot of purulence in the intra-abdominal cavity. Culture from that has been negative. 2. Perforated urinary bladder, status post repair. Urology has evaluated the patient. They recommend that it is very uncommon for self-catheterization to induce bladder perforation, so probably Gastroenterology needs to evaluate to rule out any gastrointestinal-related pathology that could have communicated with the bladder. Gastroenterology has been consulted. The patient also underwent barium enema this morning, and there was no evidence of rectal or colonic perforation. 3. Partial small-bowel obstruction, status post lysis of adhesions. 4. Neurogenic bladder. The patient used to be doing in-and-out self-catheterization. Currently has an indwelling Hayes catheter. 5. Sepsis on presentation secondary to peritonitis, stable. 6. Klebsiella oxytoca urinary tract infection. The patient is on Zosyn. 7. Coffee-ground emesis in the nasogastric tube. Will continue with the proton pump inhibitor. 8. Nutritional support. The patient has been started today on tube feedings. 9. Mild hypernatremia with hyperchloremia. I think this is related to the intravenous fluids, so we have changed it to half-normal saline dextrose with potassium baseline. In general, Mr. Bush has been in the hospital for the past 4 days, presented because of abdominal pain. Physical exams did show peritoneal reaction. Imaging studies did show small- bowel obstruction. Mr. Bush was taken to operating room. He underwent exploratory laparotomy. They found purulence in the peritoneal cavity, which was completely cleaned out. They found a bladder perforation, which was repaired by Dr. Johnson. Subsequently, Urology was consulted. The patient was seen by Dr. Monroy, and the recommendation has been given to evaluate the gastrointestinal tract. Dr. Dorman has been consulted today. There is a plan for initial esophagogastroduodenoscopy, and depending on that result, they will do further studies. For now, barium enema has been negative. Mr. Bush continues to be on intravenous antibiotics. I think the plan is to treat for 14 days. Today is day 3 on the antibiotics. cc: Darrick Tejada MD
[2019-04-11] MEDS: LIPOSYN 20% 250 ML IV SCH (15:18)
[2019-04-11] MEDS: CLINIMIX E 4.25%-5% SOLUTION 1,000 ML IV SCH (15:19)
[2019-04-11] MEDS: D5 1/2 NS + KCL 20 MEQ 1,000 ML IV SCH (15:20)
--- NOTE | 2019-04-11 15:25 | GASTROENTEROLOGY CONSULTATION ---
DATE: 04/11/2019 REQUESTING PHYSICIAN: Dr. Tejada. PRIMARY CARE DOCTOR: Dr. Shalom Rabago. REASON FOR CONSULT: Coffee-ground NG tube aspiration, history of use of Goody Powders 3 times a day. HISTORY OF PRESENT ILLNESS: Mr. Bush is a 58-year-old male who was admitted on 04/07/2019 with acute abdomen. He underwent exploratory laparotomy that revealed perforation of the bladder, that was repaired. He has a history of neurogenic bladder, on intermittent catheterization. He is being followed Dr. Monroy. Postoperatively he is being followed by Dr. Johnson. According to the patient, he has been taking Goody Powders almost 3 times a day for many months. After the surgery he had NG tube insertion which showed evidence of coffee-grounds. He was also noted to have mild anemia. Gastroenterology was consulted for further management. PAST MEDICAL HISTORY: Bladder diverticulum, neurogenic bladder, hypertension, history of use of Goody Powders. PAST SURGICAL HISTORY: Appendectomy, right shoulder surgery, robot-assisted partial cystectomy and bladder diverticulectomy, and recent exploratory laparotomy with lysis of adhesions and repair of the urinary bladder perforation. ALLERGIES: No known drug allergies. FAMILY HISTORY: Parents had Alzheimer's. Mother had asthma. REVIEW OF SYSTEMS: Denies any current fevers, rigors, or chills. He does complain of nausea, but it is better after NG tube insertion. He complains of abdominal discomfort, appropriate from surgery. He denies any vomiting blood. He has not moved his bowels so far today. He denies any neurologic complaints. He had a history of neurogenic bladder for which he was using intermittent catheterizations for some time. MEDICATIONS: In the hospital include Dilaudid, Dulcolax, Peridex, D5 half normal plus potassium chloride 20 mEq 85 mL/hour, Lovenox 40 mg every day, morphine 4 mg IV q.4 hours, Zofran 4 mg IV q.4 hours, Protonix 40 mg IV q.12 hours which I started, Flomax 0.4 mg once daily, Zosyn 3.375 g IV q.6 hours. He is currently n.p.o. PHYSICAL EXAMINATION: Vital signs: Temperature of 98.8 degrees, pulse rate of 69, respiratory rate of 20, blood pressure 131/68, saturating 95% on room air. Body weight of 135 pounds, BMI 19.9 kg/m2. General appearance: Thinly built, lying in bed, in no acute distress. HEENT: Mild pallor. No icterus. NG tube in place, draining coffee-grounds emesis. Neck: Supple. Abdomen: Has a surgical dressing. There was evidence of a EMMY drain in place. Abdomen is sore from recent surgery. Extremities: No cyanosis, clubbing, or edema. Neurologic: Alert, awake, oriented x3. LABS: His hemoglobin and hematocrit are 13.2 and 40.2, white count of 8.04, platelet count of 153,000. Potassium 3.3, chloride 101, bicarb of 24, anion gap of 11, BUN of 16, creatinine 0.9, glucose of 81, calcium is 8.6, phosphorus 3.0, magnesium 2.1, albumin 2.6. Abdomen, final culture, no anaerobes isolated. Abdomen abscess culture, no growth. Blood cultures x3 negative for 48 hours. Urine culture showed Klebsiella oxytoca, resistant to ampicillin. IMAGING: CT of the abdomen and pelvis on 04/07/2019 showed: 1. Evidence of bibasilar atelectasis and pleural effusion. 2. Small hiatal hernia with possible reflux. 3. Possibility of esophagitis cannot be excluded. 4. Distended stomach and small bowel. The possibility of ileus or partial obstruction cannot be excluded. 5. Constipation. 6. Ascites. Abdominal x-ray done on 04/07 showed gaseous distention of proximal stomach, mild generalized gaseous bowel distention. IMPRESSION AND PLAN: 1. Acute abdomen secondary to suppurative peritonitis secondary to perforated urinary bladder, status post repair and exploratory laparotomy per Dr. Johnson. Dr. Johnson and urology team, Dr. Monroy, are following. 2. Suppurative peritonitis. He is on IV Zosyn. 3. Partial small obstruction. He is status post lysis of adhesions by Dr. Johnson. 4. Coffee-grounds emesis in the nasogastric tube. The patient was counseled to quit using NSAIDs like BC Powder or Goody Powders completely. We will start on Protonix b.i.d. We will watch his hematocrit. So far it has shown very mild decline in hemoglobin and hematocrit. We will schedule him for an EGD tomorrow with Dr. Scanlon under anesthesia if he continues to be symptomatic. 5. Neurogenic bladder. This is being followed by Dr. Monroy. 6. Sepsis. He is on antibiotics secondary to peritonitis. 7. Klebsiella oxytoca urinary tract infection. He is on Zosyn. 8. Constipation. At some point, we may have to start him on laxatives once okay with surgery team and primary team. He is on IV pain control with Dilaudid and morphine. 9. For nausea and vomiting, he is on IV Zofran as needed. 10. Deep vein thrombosis prophylaxis. Lovenox. 11. Gastrointestinal prophylaxis as above with PPIs. 12. Further recommendations pending hospital course. The above plan was discussed with the patient and all questions answered. Please call us with any further questions. cc: MD Shalom Austin MD Jason R. Seale, MD Raphael K. Quansah, MD MTDD
--- NOTE | 2019-04-11 16:54 | GENERAL SURGERY PROGRESS NOTE ---
DATE: 04/11/2019 SUBJECTIVE: The patient reports some abdominal pain over the weekend, but better this morning. He denies flatus or bowel movement. OBJECTIVE: Vital Signs: He is afebrile. Vital signs are stable. NG tube output 465 mL. Osman-Garcia drain output 225 mL and serosanguineous. Urine output 2400 mL. General: He is awake, alert, oriented x3. No acute distress. Abdomen: Soft, appropriately tender. Hypoactive bowel sounds. Incisional dressing is clean and dry. LABORATORY DATA: Sodium 146, chloride 111, albumin 2.6. ASSESSMENT AND PLAN: A 58-year-old male postoperative day 4, exploratory laparotomy, lysis of adhesions, repair of bladder perforation and drainage of intraabdominal abscess. He continues to have decreased bowel function. We will start Clinimix and lipids today. We will change his intravenous fluids to D5 half-normal saline, and I will check a barium enema to rule out a rectal perforation or leak as the source for his peritonitis remains unclear. We will continue his antibiotics of Zosyn for now. cc: Cedrick Johnson MD
[2019-04-12] MEDS: ZOFRAN IV PRN ×5 (01:01→22:35)
[2019-04-12] MEDS: MORPHINE IV PRN ×5 (01:02→22:35)
[2019-04-12] MEDS: CLINIMIX E 4.25%-5% SOLUTION 1,000 ML IV SCH ×3 (01:17→17:20)
[2019-04-12] MEDS: ZOSYN 3.375 GM in NS 50 ML IV SCH ×4 (01:17→20:43)
[2019-04-12 07:05] LABS: HEMATOCRIT 38.7 % (42.0-52.0); HEMOGLOBIN 12.8 g/dL (14.0-18.0); MCH 32.2 PG (27-31); MCHC 33.1 g/dL (33-37); MCV 97.2 FL (81-99); MPV 8.8 FL (7.4-10.4); RBC 3.98 XMIL (4.7-6.1); RDW 12.8 % (11.5-14.5); WBC 9.41 X1000 (4.8-10.8)
[2019-04-12 07:21] LABS: AGAP 9; BUN 13 mg/dL (8-22); CALCIUM 8.5 mg/dL (8.8-10.2); CHLORIDE 112 mmol/L (98-107); COSMO 294; CREATININE 0.8 mg/dL (0.7-1.2); ESTIMATED GFR > 60; GLUCOSE 121 mg/dL (70-104); POTASSIUM 3.2 mmol/L (3.5-5.1); TCO2 26 mmol/L (25-35)
[2019-04-12 07:23] LABS: SODIUM 146 mmol/L (136-145)
[2019-04-12] MEDS: PERIDEX MT SCH ×2 (08:21→20:43)
[2019-04-12] MEDS: SODIUM CHLORIDE 0.9% INJ SCH ×2 (08:21→20:44)
[2019-04-12] MEDS: PROTONIX IV SCH ×2 (08:21→20:44)
[2019-04-12] MEDS: LOVENOX SUBQ SCH (08:22)
[2019-04-12] MEDS: FLOMAX PO SCH (08:22)
[2019-04-12] MEDS: LIPOSYN 20% 250 ML IV SCH (10:40)
[2019-04-12] MEDS: D5 1/2 NS + KCL 20 MEQ 1,000 ML IV SCH ×2 (11:51→15:06)
[2019-04-12] MEDS: DULCOLAX PR SCH ×2 (13:08→20:44)
[2019-04-12] MEDS ORDERED: XYLOCAINE-MPF 2% ONE (13:17)
[2019-04-12] MEDS ORDERED: DIPRIVAN 1% ONE ×2 (13:18→13:19)
[2019-04-12] MEDS ORDERED: VERSED ONE (13:18)
--- NOTE | 2019-04-12 13:19 | GENERAL SURGERY PROGRESS NOTE ---
DATE: 04/12/2019 SUBJECTIVE: The patient overall says he feels better. He had a little nausea but no vomiting. He has had a couple of bowel movements. OBJECTIVE: He is afebrile. Vital signs are stable.General: He is awake and alert and oriented x3. No acute distress. Gastrointestinal: Soft, nondistended, good bowel sounds, appropriately tender. Incisional dressing is dry. EMMY drain is serosanguineous with 60 mL out yesterday. NG tube output is not recorded. LABORATORY: White cell count 9.4, hemoglobin 12.8, hematocrit 38.7. Electrolytes reviewed and unremarkable. IMAGING: His barium enema from yesterday was reviewed and showed no evidence of rectal injury or perforation with a leak. ASSESSMENT AND PLAN: A 58-year-old male status post exploratory laparotomy, drainage of intra- abdominal fluid, lysis of adhesions and repair of bladder perforation. He seems to be improving. Apparently he is scheduled for an EGD today. We will follow up those results. If they are unremarkable, I expect we will be able to remove his NG tube and start a liquid diet. I would encourage more ambulation. He will continue the Hayes catheter per Dr. Monroy. Of note, his urine culture was positive for Klebsiella, which is susceptible to Zosyn. His abdominal fluid culture, however, is negative. His urine culture of Klebsiella is also sensitive to Levaquin so I will switch him to that today. cc: Cedrick Johnson MD
--- NOTE | 2019-04-12 14:39 | PROGRESS NOTE ---
DATE: 04/12/2019 SUBJECTIVE: This patient seems to be doing better. He is scheduled to have an EGD done today, NG tube in place, potassium level is low, but he is getting IV fluids with potassium. Sodium level is slightly elevated, but I will continue with same management for now. He is getting half NS, and that should decrease the sodium level. Initially this patient was placed on Zosyn and now he is on Levaquin. Urine culture showed Klebsiella oxytoca from 04/07/2019. Abdomen and blood culture have been negative so far. Klebsiella is sensitive to levofloxacin. OBJECTIVE: Vital Signs: Temperature 98.8 degrees, pulse 64, respiratory rate 14, blood pressure 132/68, oxygen saturation 96 on room air. HEENT: Head normocephalic, no trauma. PERRLA. Neck: Supple. No JVD. No masses. Central trachea. Chest: Clear to auscultation. No wheezing. No rales. Abdomen: Soft. He does have some bowel sounds. Generalized tenderness, but much better compared with admission as per the patient. Dressing looks clean. Hayes catheter in place. Neurological examination: The patient is alert and oriented x3. No focal deficits. LABORATORY: WBC 9.4, hemoglobin 12.8, hematocrit 38.7, platelets 186. Sodium 146, potassium 3.2, chloride 112, bicarbonate 26. BUN 13, creatinine 0.8, glucose 121, calcium 8.5. ASSESSMENT AND PLAN: 1. Acute abdomen on presentation secondary to suppurative peritonitis, status post exploratory laparotomy, postoperative day #4. Culture from that area has been negative. 2. Perforated urinary bladder, status post repair. Urology Department has been following this patient. We will continue with the same management. They have recommended that it is not common for self catheterization to induce bladder perforations, so they requested an evaluation by Gastroenterology Department to rule out any gastrointestinal issues. He is scheduled to get an upper endoscopy today. The patient underwent barium enema, and there is no evidence of rectal or colonic perforation. 3. Partial small bowel obstruction status post lysis of adhesions. This is better. He is having bowel movement now. 4. Neurogenic bladder. This is why he self catheterized himself. Currently he has an indwelling Hayes catheter. 5. Sepsis on presentation secondary to peritonitis, better, stable. 6. Klebsiella oxytoca urinary tract infection. Initially this patient was on Zosyn and now has been switched to Eliquis. 7. Coffee-ground emesis in the nasogastric tube. Continue proton pump inhibitors. He will have an endoscopy done today. 8. Nutritional status: He has been on nutrition, Clinimix and lipids. Probably if the esophagogastroduodenoscopy is okay, we can have the surgeon removed the nasogastric tube, and start this patient on a liquid diet to see how he does. 9. Mild hypernatremia with hyperchloremia. I will continue with half normal saline for now. He has been recently changed. Let us monitor. cc: Daljit Martinez MD
[2019-04-12] MEDS: DILAUDID IV PRN (14:46)
--- NOTE | 2019-04-12 15:04 | OPERATIVE NOTE ---
PROCEDURE DATE: 04/12/2019 PROCEDURE: Esophagogastroduodenoscopy. PREOPERATIVE DIAGNOSIS: Coffee ground emesis. POSTOPERATIVE DIAGNOSES: 1. Esophagitis. 2. Gastritis. 3. No varices, no ulcer. DESCRIPTION OF PROCEDURE: After informed consent and adequate intravenous sedation, the scope introduced in the esophagus. The patient has mild esophagitis, small hiatal hernia. No esophageal varices. Cardia, fundus, body, and stomach carefully examined. Antrum, mild antral erythema. Duodenum is normal. No bleeding lesions. The scope was withdrawn. Patient tolerated procedure well without any immediate complications. RECOMMENDATION: Advance the diet. cc: Moi Scanlon MD
[2019-04-12] MEDS: LEVAQUIN PO SCH (20:49)
[2019-04-13] MEDS: ZOFRAN IV PRN ×4 (04:03→21:00)
[2019-04-13] MEDS: MORPHINE IV PRN ×4 (04:03→21:00)
[2019-04-13 07:00] LABS: AGAP 11; ALBUMIN 2.9 g/dL (3.5-5.0); ALKALINE PHOSPHATASE 45 U/L (32-122); BUN 12 mg/dL (8-22); CALCIUM 8.5 mg/dL (8.8-10.2); CHLORIDE 107 mmol/L (98-107); COSMO 285; CREATININE 0.7 mg/dL (0.7-1.2); ESTIMATED GFR > 60; GLUCOSE 112 mg/dL (70-104); GOT 18 U/L (10-34); GPT 17 U/L (10-44); POTASSIUM 3.5 mmol/L (3.5-5.1); SODIUM 143 mmol/L (136-145); TCO2 25 mmol/L (25-35); TOTAL BILIRUBIN 0.29 mg/dL (0.20-1.00); TOTAL PROTEIN 5.9 g/dL (6.3-8.3)
[2019-04-13] MEDS: DULCOLAX PR SCH (09:25)
[2019-04-13] MEDS: FLOMAX PO SCH (09:26)
[2019-04-13] MEDS: SODIUM CHLORIDE 0.9% INJ SCH ×2 (09:26→21:00)
[2019-04-13] MEDS: LEVAQUIN PO SCH (09:26)
[2019-04-13] MEDS: PROTONIX IV SCH ×2 (09:26→21:00)
[2019-04-13] MEDS: LOVENOX SUBQ SCH (09:26)
[2019-04-13] MEDS: PERIDEX MT SCH ×2 (09:26→21:00)
[2019-04-13] MEDS: CLINIMIX E 4.25%-5% SOLUTION 1,000 ML IV SCH ×2 (09:36→23:59)
[2019-04-13] MEDS: LIPOSYN 20% 250 ML IV SCH (11:19)
[2019-04-13] MEDS: D5 1/2 NS + KCL 20 MEQ 1,000 ML IV SCH (11:22)
[2019-04-13] MEDS: DILAUDID IV PRN ×3 (12:49→23:59)
--- NOTE | 2019-04-13 12:59 | PROGRESS NOTE ---
DATE: 04/13/2019 SUBJECTIVE: This patient seems to be doing better. He is having bowel movements but today, he started having watery bowel movements. He has been placed on a liquid diet. EGD showed gastritis and esophagitis. Sodium level seems to be better, as well as potassium level. The NG tube has been removed. We will continue with the same management. OBJECTIVE: Vital Signs: Temperature 98.2 degrees, pulse 69, respiratory rate 14, blood pressure 123/72, oxygen saturation 96 on room air. HEENT: Head normocephalic. No trauma. PERRLA. Neck: Supple. No JVD. No masses. Central trachea. Chest: Clear to auscultation. No wheezing. No rales. Abdomen: Soft. He does have some bowel movements. Generalized tenderness to palpation but better compared with yesterday. Dressing looks clean. Hayes catheter in place. Neurological Examination: The patient is alert. He is oriented x3. No focal deficits. Laboratory: Sodium 143, potassium 3.5, chloride 107, bicarbonate 25, BUN 12, creatinine 0.7, glucose 112, calcium 8.5. AST 18, ALT 17, alkaline phosphatase 45, albumin 2.9. ASSESSMENT AND PLAN: 1. Acute abdomen on presentation secondary to suppurative peritonitis, status post exploratory laparotomy, postoperative day #5. A culture from that area has been negative so far. 2. Perforated urinary bladder, status post repair. Urology department has been following this patient. We will continue with the same management. They have recommended that it is not common for self catheterization to induce bladder perforations so they requested a gastroenterology evaluation to rule out any gastrointestinal issues. He had an upper endoscopy done yesterday that showed esophagitis and gastritis. The patient underwent barium enema and there is no evidence of rectal or colonic perforation. 3. Partial small bowel obstruction, status post lysis of adhesions. This is better. He is having bowel movements now, diarrhea though. 4. Neurogenic bladder. This is why this patient self catheterizes. 5. Sepsis on presentation secondary to peritonitis, better, stable. 6. Klebsiella oxytoca urinary tract infection. This patient initially was on Zosyn, now on levofloxacin. 7. Coffee-grounds emesis in the nasogastric tube. Continue with proton pump inhibitors. He had an endoscopy done that showed gastritis and esophagitis. 8. Nutritional status. The nasogastric tube has been removed and he has been placed on a diet, which he has been tolerating. We will continue to monitor. 9. Mild hypernatremia with hyperchloremia, resolved. Continue with the same management for now. 10. Hypokalemia, resolved. cc: Daljit Martinez MD
--- NOTE | 2019-04-13 13:27 | GASTROENTEROLOGY PROGRESS NOTE ---
DATE: 04/13/2019 SUBJECTIVE: Mr. Bush is a 58-year-old male resting in bed, complained of having diarrhea last night 3 times and this morning, he had one BM. He denies any nausea or vomiting. He is on full liquid diet and was able to tolerate his diet. He had an NG tube put in yesterday and it was removed today. He said he was feeling much better. OBJECTIVE: Vital Signs: Temperature is 98.2 degrees, pulse is 69, respirations 14, blood pressure 123/72, oxygen saturation 96 on room air. General: In general, he is alert, oriented x3, in no acute distress. HEENT: Pale conjunctivae. No icterus. PERRL. Neck: Supple. Lungs: Clear to auscultation in anterior and posterior ruiz. Abdomen: Soft, tender, midline incision. Dressing is dry and intact. Cardiovascular: Regular rate and rhythm. No rubs, murmurs, or gallops heard on auscultation. Extremities: No cyanosis, clubbing, or edema noted. 2+ pedal pulses present bilaterally. Neurological: Alert, oriented x3. LABORATORY DATA: WBC is 9.41, RBC is 3.9, hemoglobin 12.8, hematocrit 38.7, platelet count is 186,000. Sodium is 143, potassium 3.5, chloride 107, carbon dioxide 25, anion gap is 11, BUN is 12, creatinine is 0.7. Glucose is 112, calcium is 8.5, AST 18, ALT 17. Barium enema showed no evidence of rectal or colonic perforation. His EGD showed that he had esophagitis and small hiatal hernia. IMPRESSION AND PLAN: Abdominal pain Esophagitis Hiatal hernia Nausea and Vomiting Diarrhea Perforated urinary bladder Partial small bowel obstruction S/p lysis of adhesions Neurogenic bladder Malnutrition PLAN: The patient's NG tube has been taken out and he is on full liquid diet and was able to tolerate his diet well. We will continue with his full liquid diet and advance his diet as tolerated. The patient is receiving Clinimix IV fluids at 65 mls/hr and lipids @ 10 ml/hr for nutrition. We will GI prophylaxis, Protonix IV 40 mg BID for now then transition to PO for 3 months on discharge, antiemetic Zofran for nausea and vomiting. His hemoglobin today was 12.8 and hematocrit was 38.7. We will continue to monitor his CBC and BMP and will continue to follow the plan of care per primary care provider. We will follow up with him outpatient in 4 to 6 weeks after he is discharged from the hospital. This plan was discussed with Dr. Dorman. Please call us with any further questions or concerns. Dictated by ROBYN Valerio for Mikey Dorman MD cc: Mikey Dorman MD Patient seen and examined and I agree with the above plan of care. Discussed the above plan of care with the patient and all questions were answered. Please call us with any further questions. JASPREET
--- NOTE | 2019-04-13 14:15 | GENERAL SURGERY PROGRESS NOTE ---
DATE: 04/13/2019 SUBJECTIVE: The patient is doing okay. No acute events overnight. The EGD yesterday was negative. His NG tube is out. He has been tolerating a liquid diet without nausea or vomiting. He has had some bowel movements. OBJECTIVE: He is afebrile. Vital signs are stable.General: He is awake, alert, oriented x3. No acute distress. Gastrointestinal: Soft, nondistended appropriately tender. Incision is clean, dry, and intact. He has good bowel sounds. EMMY drain is serosanguineous. LABORATORY: Metabolic profile reviewed and unremarkable. ASSESSMENT AND PLAN: A 58-year-old male status post exploratory laparotomy with lysis of adhesions and repair of bladder perforation. He is improving. We are advancing his diet. He is on Levaquin for Klebsiella greater than 100,000 colony-forming units in his urine. As far as I am concerned he can be discharged in the next 24 hours. His EMMY drain and Hayes catheter are to be removed at Dr. Monroy's discretion. cc: Cedrick Johnson MD
[2019-04-14] MEDS: MORPHINE IV PRN ×3 (03:46→21:12)
[2019-04-14] MEDS: ZOFRAN IV PRN ×4 (03:46→21:11)
[2019-04-14 06:35] LABS: BASO# 0.02 X1000 (0.0-0.2); BASO% 0.2 % (0.0-0.8); EOS# 0.45 X1000 (0.0-0.7); EOS% 4.3 % (0.0-10.0); HEMATOCRIT 39.2 % (42.0-52.0); IMM GRAN# 0.06 X1000 (0.0-0.04); IMM GRAN% 0.6 % (0.0-0.5); LYMPH% 6.7 % (20.5-51.1); MCH 31.9 PG (27-31); MCHC 33.2 g/dL (33-37); MCV 96.1 FL (81-99); MONO# 0.68 X1000 (0.11-0.59); MONO% 6.5 % (1.7-9.3); MPV 8.7 FL (7.4-10.4); NEUT# 8.49 X1000 (1.4-6.5); NEUT% 81.7 % (42.2-75.2); PLT 258 X1000 (130-400); RBC 4.08 XMIL (4.7-6.1); RDW 12.7 % (11.5-14.5)
[2019-04-14 06:55] LABS: AGAP 12; ALB/GLOB RATIO 1.4; ALKALINE PHOSPHATASE 45 U/L (32-122); BUN 13 mg/dL (8-22); CALCIUM 8.4 mg/dL (8.8-10.2); CHLORIDE 102 mmol/L (98-107); COSMO 280; CREATININE 0.8 mg/dL (0.7-1.2); ESTIMATED GFR > 60; GLUCOSE 108 mg/dL (70-104); GOT 21 U/L (10-34); GPT 22 U/L (10-44); POTASSIUM 3.7 mmol/L (3.5-5.1); SODIUM 140 mmol/L (136-145); TCO2 26 mmol/L (25-35); TOTAL BILIRUBIN 0.29 mg/dL (0.20-1.00); TOTAL PROTEIN 5.1 g/dL (6.3-8.3)
[2019-04-14] MEDS: LEVAQUIN PO SCH (09:54)
[2019-04-14] MEDS: LOVENOX SUBQ SCH (09:54)
[2019-04-14] MEDS: FLOMAX PO SCH (09:54)
[2019-04-14] MEDS: PERIDEX MT SCH ×2 (09:59→21:11)
[2019-04-14] MEDS: PROTONIX IV SCH ×2 (10:18→21:12)
[2019-04-14] MEDS: SODIUM CHLORIDE 0.9% INJ SCH ×2 (10:19→21:11)
[2019-04-14] MEDS: CULTURELLE PO SCH ×2 (10:40→21:12)
[2019-04-14] MEDS: D5 1/2 NS + KCL 20 MEQ 1,000 ML IV SCH (10:40)
[2019-04-14] MEDS: LIPOSYN 20% 250 ML IV SCH (10:40)
[2019-04-14] MEDS: DILAUDID IV PRN ×3 (12:40→19:15)
--- NOTE | 2019-04-14 12:56 | GASTROENTEROLOGY PROGRESS NOTE ---
DATE: 04/14/2019 SUBJECTIVE: Mr. Bush is a 58-year-old male, resting in bed, C/o nausea but no vomiting he had one bowel movement today. Abdomen is distended and tender in the incisional area. OBJECTIVE: Vital Signs: Temperature is 98.6 degrees, pulse is 71, respirations are 14, blood pressure 98/54, oxygen is 96 percent on room air. His weight is 134.6 pounds, BMI of 19.9 kg/m2. General: He is alert, oriented x3, and in no acute distress. HEENT: Pale conjunctivae. No icterus. PERRL. Neck: Supple. Lungs: Clear to auscultation in anterior and posterior ruiz. Abdomen; Soft. distended, Tender. Midline incision, dressing is dry and intact. He does have a EMMY tube draining. Cardiovascular: Regular rate and rhythm. No rubs, murmurs, or gallops heard on auscultation. Extremities: No cyanosis, clubbing, or edema. 2+ pedal pulses present bilaterally. Neurological: Alert, oriented x3. Laboratory Data: WBCs 10.40, RBCs 4.8, hemoglobin is 13.0, hematocrit is 39.2, platelet count is 258,000. Sodium is 140, potassium 3.7, chloride 102, carbon dioxide 26, anion gap 12, BUN is 13, creatinine is 0.8, glucose is 108, calcium is 8.4. AST is 21, ALT is 22. His MADISYN screen with reflex AB's was negative. Barium enema had shown no evidence of rectal colonic perforation. His EGD on 04/12/2019 showed that he had esophagitis and a small hiatal hernia. IMPRESSION: 1. Abdominal pain. 2. Esophagitis. 3. Hiatal hernia. 4. Nausea, vomiting, diarrhea. 5. Perforated urinary bladder. 6. Partial small-bowel obstruction status post lysis of adhesions. 7. Neurogenic bladder. 8. Malnutrition. PLAN: Will check stool studies and start Culturelle BID for now. The patient is currently on a full liquid diet and is able to tolerate his diet well. We will continue with his diet and advance as tolerated. He is receiving Clinimix IV fluids 65 mL per hour and lipids 10 mL per hour for nutrition. We will continue the GI prophylaxis, Protonix IV 40 mg BID for now and transition to PO 40 mg for 3 months after he is discharge, Antiemetic Zofran for nausea and vomiting. His hemoglobin and hematocrit today were 13.0 and 39.2. It has been trending upward. We will continue to monitor his CBCs and BMPs, and continue to follow the plan of care per primary care provider. We will follow him up as an outpatient in our clinic in 4 to 6 weeks after he his discharge from the hospital. This plan was discussed with Dr. Dorman. Please call us for any further questions or concerns. Dictated by ROBYN Valerio for Mikey Dorman MD cc: Mikey Dorman MD I have seen and examined the patient myself and I agree with the above plan of care. Discussed the above with the patient at bedside and all questions were answered. Please call us with any further questions. JASPREET
[2019-04-14] MEDS: CLINIMIX E 4.25%-5% SOLUTION 1,000 ML IV SCH (16:14)
--- NOTE | 2019-04-14 18:12 | GENERAL SURGERY PROGRESS NOTE ---
DATE: 04/14/2019 SUBJECTIVE: Patient is feeling better today. No nausea or vomiting. He is tolerating a liquid diet. He has had several bowel movements. OBJECTIVE: He is afebrile. Vital signs are stable.General: He is awake, alert, oriented x3. No acute distress. Gastrointestinal: Soft, nondistended, appropriately tender. Incision is clean, dry, and intact. EMMY drain is serosanguineous. ASSESSMENT AND PLAN: A 58-year-old male status post exploratory laparotomy, lysis of adhesions and repair of bladder perforation. He is improving. We will advance his diet to a gastrointestinal soft diet and from my standpoint he can be discharged in the next 24 hours with urology followup for his bladder and follow up with me for his wounds. cc: Cedrick Johnson MD
--- NOTE | 2019-04-14 21:23 | PROGRESS NOTE ---
DATE: 04/14/2019 SUBJECTIVE: The patient is sitting up in bed. He complains of diarrhea. OBJECTIVE: Vital Signs: Temperature 98.8 degrees, blood pressure 111/61, heart rate 73, respirations 16, O2 saturation 96% on room air. General: This is an elderly male lying in bed in no acute distress. Heart: S1, S2 normal. Regular rate and rhythm. Lungs: Clear to auscultation bilaterally. Abdomen: Positive bowel sounds. Soft, nontender, nondistended. Extremities: No edema, no cyanosis. Neurologic: The patient is alert and oriented x4. LABORATORY STUDIES: White blood cell count 10, hemoglobin 13, hematocrit 39, platelets 258,000. Sodium 140, potassium 3.7, chloride 102, CO2 26, BUN 13, creatinine 0.8, glucose 108. ASSESSMENT AND PLAN: 1. Status post exploratory laparotomy with lysis of adhesions and repair of a bladder perforation. Management as per the general surgeon. 2. Urinary tract infection secondary to Klebsiella. Continue on Levaquin. 3. Status post perforated bladder with repair. The patient will follow up with Dr. Monroy as outpatient. 4. Gastrointestinal prophylaxis. Continue on IV Protonix. 5. Deep vein thrombosis prophylaxis. Continue on Lovenox. 6. Continue with physical therapy as tolerated. cc: Jyoti Howell MD MTDD
[2019-04-15] MEDS: DILAUDID IV PRN ×2 (00:23→11:12)
[2019-04-15] MEDS: MORPHINE IV PRN ×3 (03:52→14:15)
[2019-04-15] MEDS: ZOFRAN IV PRN ×3 (03:52→14:16)
[2019-04-15 06:30] LABS: BASO# 0.03 X1000 (0.0-0.2); BASO% 0.3 % (0.0-0.8); EOS# 0.39 X1000 (0.0-0.7); EOS% 3.9 % (0.0-10.0); HEMOGLOBIN 13.9 g/dL (14.0-18.0); IMM GRAN# 0.08 X1000 (0.0-0.04); IMM GRAN% 0.8 % (0.0-0.5); LYMPH% 8.1 % (20.5-51.1); MCH 31.7 PG (27-31); MCHC 33.1 g/dL (33-37); MCV 95.7 FL (81-99); MONO# 0.65 X1000 (0.11-0.59); MONO% 6.6 % (1.7-9.3); MPV 8.9 FL (7.4-10.4); NEUT# 7.94 X1000 (1.4-6.5); NEUT% 80.3 % (42.2-75.2); PLT 281 X1000 (130-400); RBC 4.39 XMIL (4.7-6.1); RDW 12.9 % (11.5-14.5); WBC 9.89 X1000 (4.8-10.8)
[2019-04-15 06:54] LABS: PHOSPHORUS 3.3 mg/dL (2.7-4.5)
[2019-04-15 06:55] LABS: AGAP 8; BUN 15 mg/dL (8-22); CALCIUM 8.4 mg/dL (8.8-10.2); CHLORIDE 99 mmol/L (98-107); COSMO 267; CREATININE 0.8 mg/dL (0.7-1.2); ESTIMATED GFR > 60; GLUCOSE 129 mg/dL (70-104); POTASSIUM 4.2 mmol/L (3.5-5.1); SODIUM 132 mmol/L (136-145); TCO2 25 mmol/L (25-35)
--- NOTE | 2019-04-15 08:38 | GENERAL SURGERY PROGRESS NOTE ---
DATE: 04/15/2019 SUBJECTIVE: The patient is doing well. He denies nausea, vomiting or significant abdominal pain. He is having some diarrhea. No fever. OBJECTIVE: Vital Signs: He is afebrile. Vital signs are stable. General: He is awake, alert, oriented x3. No acute distress. CV: Regular rate and rhythm. Respiratory: Bilateral breath sounds. No work of breathing. GI: Soft, minimally distended, appropriately tender. Incision is clean, dry, and intact. EMMY drain is serosanguineous and scant. He does have good bowel sounds. LABORATORY: White blood cell count 9.8, hemoglobin 13.9. Electrolytes reviewed and unremarkable. MICROBIOLOGY: His stool Clostridium difficile toxin is negative. ASSESSMENT/PLAN: A 58-year-old male status post exploratory laparotomy with lysis of adhesions, drainage of purulent ascites, and repair of bladder perforation. I believe he is recovered enough to be discharged. I have written prescriptions for Prilosec due to his esophagitis and gastritis and for [place] for pain. We need further clarification from Dr. Monroy regarding his Hayes catheter, as well as the EMMY drain, which is intra-abdominal adjacent to the bladder repair. He can follow up with me in the middle of next week for staple removal and wound check. cc: Cedrick Johnson MD
[2019-04-15] MEDS: PERIDEX MT SCH (08:49)
[2019-04-15] MEDS: LEVAQUIN PO SCH (08:50)
[2019-04-15] MEDS: CULTURELLE PO SCH (08:50)
[2019-04-15] MEDS: FLOMAX PO SCH (08:50)
[2019-04-15] MEDS: LOVENOX SUBQ SCH (08:50)
[2019-04-15 10:19] LABS: CREATININE BODY FLUID 0.9 mg/dL
[2019-04-15 12:13] VITALS: BP 114/71
--- NOTE | 2019-04-15 12:59 | GASTROENTEROLOGY PROGRESS NOTE ---
DATE: 04/15/2019 SUBJECTIVE: Mr. Bush is a 58-year-old male sitting in bed having his breakfast. He complained that he still has some nausea but no vomiting. Had 2 bowel movements this morning. Abdomen is distended and tender in the incision area, david present, incision dry and intact. OBJECTIVE: Vital Signs: Temperature 98.3 degrees, pulse is 98, respirations 18, blood pressure is 104/68, oxygen saturation is 97% on room air. His weight is 134.6 pounds. BMI is 19.9 kg/m2. General: He is alert, oriented x3, in no acute distress. HEENT: Pale conjunctivae. No icterus. PERRL. Neck: Supple. Lungs: Clear to auscultation anterior and posterior ruiz. Abdomen: Soft, distended, tender, midline incision. He has david and incision look dry and intact. He does have a EMMY tube draining. Cardiovascular: Regular rate and rhythm. No murmurs, rubs, or gallops on auscultation. Extremities: No cyanosis, clubbing, or edema. 2+ pedal pulses present bilaterally. Neurological: Alert, oriented x3. LABORATORY DATA: WBCs 9.8, RBC 4.39, hemoglobin 13.1, hematocrit is 42, platelet count is 281,000. Sodium is 132, potassium is 4.2, chloride 99, carbon dioxide 25, anion gap is 8, BUN is 15, creatinine 0.88. IMPRESSION: Abdominal pain Esophagitis Hiatal hernia Nausea and vomiting Diarrhea Perforated urinary bladder Partial small bowel obstruction S/P lysis of adhesions Neurogenic bladder Malnutrition PLAN: Patient is on a GI soft diet and is able to tolerate his diet well. His abdomen is still photographer, distended with midline incision dry and david intact. We have started the patient on Culturelle and advised patient to continue even after he is discharged. He is on antiemetic Zofran PRN for his nausea. The patient was seen by the surgeon this morning, patient stated that he might get discharged. We have asked the patient to follow up as an outpatient in our clinic after he is discharged from the hospital. This plan was discussed with Dr. Scanlon. Please call us with any further questions or concerns. Dictated by ROBYN Valerio for Moi Scanlon MD cc: Moi Scanlon MD MTDD
--- NOTE | 2019-04-17 18:53 | DISCHARGE SUMMARY ---
ADMISSION DATE: 04/07/2019 DISCHARGE DATE: 04/15/2019 FINAL DISCHARGE DIAGNOSES: 1. Status post exploratory laparotomy with lysis of adhesions secondary to small bowel obstruction. 2. Status post status post repair of a bladder perforation. 3. Esophagitis. 4. Gastritis. 5. Urinary tract infection secondary to Klebsiella oxytoca. 6. Neurogenic bladder. 7. Sepsis secondary to peritonitis. CONSULTATIONS: 1. General Surgery consultation with Dr. Johnson. 2. Urology consultation with Dr. Monroy. 3. GI consultation with Dr. Dorman. PROCEDURES: 1. Exploratory laparotomy with lysis of adhesions. 2. Repair of her bladder perforation. 3. EGD. HOSPITAL COURSE: Mr. Bush is a 58-year-old male who initially presented to the ER with a chief complaint of abdominal pain as well as nausea and vomiting. In the ER, a CT of the abdomen and pelvis was done that revealed a small hiatal hernia, distended stomach and small bowel as well as a partial bowel obstruction. General Surgery was consulted immediately. Cultures were obtained and the patient was started on antibiotic therapy. The patient was taken to the OR on 04/08/2019 at which time an exploratory laparotomy with lysis of adhesions was performed. The patient was noted to have a bladder perforation and this was also repaired during this procedure. Ultimately, the urine culture grew out Klebsiella oxytoca. The patient was treated with Zosyn throughout the hospitalization. The patient also had an episode of coffee-grounds emesis, so GI was consulted. The patient underwent an EGD on 04/12/2019 that revealed esophagitis and gastritis. The patient was treated with IV Protonix during the hospitalization. Initially, the patient was placed on Clinimix while waiting for bowel function to return. Eventually, the patient's bowel function returned and the patient's diet was slowly advanced. The patient was also seen by Dr. Monroy following the bladder perforation repair. It was recommended that the patient leave the Hayes catheter in until a cystogram is performed as outpatient to ensure complete healing. The patient was also noted to have an elevated PSA and this will be followed by Dr. Monroy as outpatient once the patient is healed from the bladder perforation. The patient continued to improve clinically and was ultimately cleared for discharge home on 04/15/2019. DISCHARGE MEDICATIONS: 1. Levaquin 750 mg oral daily x5 days. 2. [place] 10/325 one tab oral every 6 hours p.r.n. for pain. 3. Omeprazole 40 mg p.o. daily. 4. Culturelle 1 tablet oral twice a day. 5. Flomax 0.4 mg oral daily. DISCHARGE DIET: Regular diet. ACTIVITY: As tolerated. FOLLOWUP INSTRUCTIONS: The patient is scheduled to follow up with Dr. Johnson on 04/20/2019 at 8:15 a.m. The patient will also follow up with Dr. Monroy within the next 5 to 7 days. The patient will need to follow up with Dr. Rabago in 2 weeks. cc: MD Shalom Childress MD
== END 2019-04-15 15:15 | disposition home or self-care (01) | DRG 853 ==
LOC: ED 11:39 → EDIPHOLD 17:22 → SUATTDRO 17:22 → 4N 04-08 00:10
PROVIDERS: ATTEND Internal Medicine